=== PATIENT | male | born 1945 | race Caucasian/White ===

== ENCOUNTER 2016-06-01 10:35 | Inpatient (IN) | payer BC, OTHER ==
[~2016-06-01] VITALS: Ht 182.9 cm; Wt 89.4 kg
[2016-06-01] MEDS ORDERED: SODIUM CHLORIDE 0.9% 500ML 500 ML IV STA (11:17)
[2016-06-01] MEDS ORDERED: BROM2.5T3 PO (11:29)
[2016-06-01] MEDS ORDERED: LEVO175T PO (11:29)
[2016-06-01] MEDS ORDERED: CHOL20009 PO (11:29)
[2016-06-01] MEDS ORDERED: OPTIRAY 320 IV PRN (11:30)
[2016-06-01 11:55] LABS: HEMATOCRIT 38.7 % (42-52); MEAN CORPUSCULAR HEMOGLOBIN 28.9 pg (25-34); MEAN CORPUSCULAR HGB CONC 35.7 g/dl (32-36); MEAN PLATELET VOLUME 9.8 fL (7.4-10.4); PLATELET COUNT 184 K/uL (130-400); RED BLOOD COUNT 4.78 M/uL (4.7-6.1); WHITE BLOOD COUNT 11.65 K/uL (4.8-10.8)
[2016-06-01 12:02] LABS: BUN/CREATININE RATIO 11.4 (10-20); CALCIUM 9.1 mg/dl (8.5-10.1); CREATININE 0.79 mg/dl (0.60-1.40); MAGNESIUM 2.1 mg/dl (1.8-2.4)
[2016-06-01 12:08] LABS: ALB/GLOB RATIO 1.3 (0.9-2); CKMB/CK RATIO 0.6 (0-3.0)
--- NOTE | 2016-06-01 12:28 | DIAGNOSTIC IMAGING REPORT ---
CHEST CTA for PULMONARY ARTERIES CT DOSE: 322.67 mGy.cm HISTORY: Chest pain dyspnea TECHNIQUE: Multiaxial CT images of the chest were performed following the intravenous administration of contrast to evaluate the pulmonary arteries. Maximal intensity projection images were also obtained. COMPARISON STUDY: None. FINDINGS: Thoracic aorta is unremarkable. No evidence for aneurysm or dissection. Multiple filling defects involving the right lower lobe pulmonary arterial vasculature. No evidence for major or central/saddle pulmonary embolus. Lungs are considered generally clear. IMPRESSION: Study is positive for several pulmonary emboli involving the right lower lobe pulmonary arterial vasculature. Electronically signed by: Kevin Buchanan M.D. 06/01/2016 12:27 PM Dictated Date/Time: 06/01/2016 12:23 PM
--- NOTE | 2016-06-01 13:13 | History and Physical ---
History & Physical Date & Time of Service: Jun 01, 2016 at 13:06 Chief Complaint: Left Leg Pain-Sent From Ultrasound Primary Care Physician: Isaias Robles M.D. History of Present Illness Source: patient This is a 70 yo M with PMHx pituitary tumor, hyperprolactinoma which he is taking bromocriptine for, s/p thryoidectomy on levothyroxine, and hx of superficial thrombophlebitis who presents to the ED after seeking out medical care for pain in his LLE this morning. Pt reports 1 week ago was kickboxing and noticed he was more short of breath than normal, and that he required taking it easier with his exercising up until 2 days ago. He developed a superficial thrombophlebitis and was treating this with warm compresses until this morning it felt like a deeper pain and was very sore. LLE doppler revealed popliteal DVT and was sent to the ED by ultrasound department. A CTPE shows multiple RLL segmental PE's. Pt wears a fitbit and was alerted that his HR was elevated to 110 at home this morning, here it is =102. He is agreeable to admission and being started on heparin gtt after being spoken to by me. Past Medical/Surgical History Pituitary tumor, Hyperprolactinoma S/p thryroidectomy Family History Pt denies family history of clotting or bleeding disorders. Father when pt was age 3 and mother 40 years ago to unknown causes. Social History Smoking Status: Never Smoker Smokeless Tobacco Use: No Alcohol Use: occasionally Drug Use: none Marital Status: Housing status: lives with family Multi-Drug Resistant Organisms History of MDRO: No Allergies Coded Allergies: Sulfa Antibiotics (Verified Allergy, Unknown, ., 06/01/16) Home Medications Scheduled Bromocriptine Mesylate (Bromocriptine Mesylate), 2.5 MG PO DAILY Cholecalciferol (Vitamin D), 2,000 UNIT PO DAILY Levothyroxine Sodium (Synthroid), 175 MCG PO DAILY Review of Systems Constitutional: + fatigue, No chills, No fever, No sweats Eyes: No eye pain, No redness ENT: No nasal symptoms, No tinnitus, No unusual epistaxis Respiratory: + dyspnea on exertion, No cough, No dyspnea at rest, No wheezing Cardiovascular: + problem reported, No chest pain, No palpitations Musculoskeletal: + calf pain (LLE), No joint pain, No swelling Genitourinary - Male: No hematuria Neurologic: No balance problems, No numbness/tingling Psychiatric: No anxiety, No insomnia Endocrine: + fatigue Hematologic / Lymphatic: No abnormal bleeding/bruising, No clotting problems Integumentary: No itch, No rash Physical Exam Vital Signs Date Time Temp Pulse Resp B/P Pulse Ox O2 Delivery O2 Flow Rate FiO2 06/01/16 11:29 97 Room Air 06/01/16 10:47 37.2 103 20 135/82 95 Room Air General Appearance: WD/WN, no apparent distress, + pertinent finding (appears younger than stated age) Head: normocephalic, atraumatic Eyes: PERRL, EOMI ENT: hearing grossly normal, pharynx normal Neck: supple, no JVD Respiratory/Chest: chest non-tender, lungs clear, normal breath sounds, no respiratory distress, no accessory muscle use Cardiovascular: no JVD, no murmur, normal peripheral pulses, + tachycardia (HR= 102), + pertinent finding (regular rhythm) Abdomen/GI: normal bowel sounds, non tender Back: normal inspection Extremities/Musculoskelatal: no pedal edema, + calf tenderness (LLE DVT and + superficial thrombophlebitis ) Neurologic/Psych: alert, normal mood/affect, oriented x 3 Skin: normal color, warm/dry, + pertinent finding (vericose veins of BLE) Diagnostics Laboratory Results Results Past 24 Hours Test 06/01/16 11:28 06/01/16 11:37 06/01/16 12:50 Range/Units White Blood Count 11.65 4.8-10.8 K/uL Red Blood Count 4.78 4.7-6.1 M/uL Hemoglobin 13.8 14.0-18.0 g/dL Hematocrit 38.7 42-52 % Mean Corpuscular Volume 81.0 80-100 fL Mean Corpuscular Hemoglobin 28.9 25-34 pg Mean Corpuscular Hemoglobin Concent 35.7 32-36 g/dl Platelet Count 184 130-400 K/uL Mean Platelet Volume 9.8 7.4-10.4 fL RDW Standard Deviation 36.2 36.4-46.3 fL RDW Coefficient of Variation 12.3 11.5-14.5 % Sodium Level 141 136-145 mmol/L Potassium Level 4.0 3.5-5.1 mmol/L Chloride Level 105 98-107 mmol/L Carbon Dioxide Level 26 21-32 mmol/L Anion Gap 10.0 3-11 mmol/L Blood Urea Nitrogen 9 7-18 mg/dl Creatinine 0.79 0.60-1.40 mg/dl Est Creatinine Clear Calc Drug Dose 95.5 ml/min Estimated GFR () 105.4 Estimated GFR (Non- 91.0 BUN/Creatinine Ratio 11.4 10-20 Random Glucose 91 70-99 mg/dl Calcium Level 9.1 8.5-10.1 mg/dl Magnesium Level 2.1 1.8-2.4 mg/dl Total Bilirubin 0.8 0.2-1 mg/dl Aspartate Amino Transf (AST/SGOT) 17 15-37 U/L Alanine Aminotransferase (ALT/SGPT) 21 12-78 U/L Alkaline Phosphatase 84 45-117 U/L Total Creatine Kinase 78 39-308 U/L Creatine Kinase MB 0.5 0.5-3.6 ng/ml Creatine Kinase MB Ratio 0.6 0-3.0 Total Protein 7.0 6.4-8.2 gm/dl Albumin 3.9 3.4-5.0 gm/dl Globulin 3.1 2.5-4.0 gm/dl Albumin/Globulin Ratio 1.3 0.9-2 Bedside Troponin I 0.000 0-0.045 ng/ml Diagnostic Radiology Venous Doppler left leg VENOUS DOPP LOWER EXT UNILAT CLINICAL HISTORY: M79.605 Left leg painleft lower ext.[id number] pain. Edema. TECHNIQUE: Venous Doppler COMPARISON STUDY: None FINDINGS: Findings consistent with a combination of acute superficial thrombophlebitis and deep venous thrombosis. Deep venous thrombosis demonstrated within the popliteal vein. Superficial thrombophlebitis within the greater saphenous vein. The saphenous thrombophlebitis extends to several centimeters from the common femoral vein. IMPRESSION: Acute deep venous thrombosis combined with superficial thrombophlebitis. Electronically signed by: Kevin Buchanan M.D. 06/01/2016 10:12 AM Dictated Date/Time: 06/01/2016 10:10 AM The status of this report is Signed. CHEST CTA for PULMONARY ARTERIES CT DOSE: 322.67 mGy.cm HISTORY: Chest pain dyspnea TECHNIQUE: Multiaxial CT images of the chest were performed following the intravenous administration of contrast to evaluate the pulmonary arteries. Maximal intensity projection images were also obtained. COMPARISON STUDY: None. FINDINGS: Thoracic aorta is unremarkable. No evidence for aneurysm or dissection. Multiple filling defects involving the right lower lobe pulmonary arterial vasculature. No evidence for major or central/saddle pulmonary embolus. Lungs are considered generally clear. IMPRESSION: Study is positive for several pulmonary emboli involving the right lower lobe pulmonary arterial vasculature. Electronically signed by: Kevin Buchanan M.D. 06/01/2016 12:27 PM Dictated Date/Time: 06/01/2016 12:23 PM The status of this report is Signed. EKG Vent. rate 97 BPM CA interval 146 ms QRS duration 90 ms QT/QTc 336/426 ms P-R-T axes 61 -44 61 NSR without ischemic or acute changes. Normal EKG Impression Assessment and Plan This is a 70 yo M with PMHx pituitary tumor, hyperprolactinoma which he is taking bromocriptine for, s/p thyroidectomy on levothyroxine, and hx of superficial thrombophlebitis who presents to the ED after seeking out medical care for pain in his LLE this morning, found to have LLE DVT and RLL pulmonary embolism. Pulmonary Embolism, LLE DVT - Admit to tele - Start heparin bolus and gtt, continue - will likely be discharged on xarelto - LLE doppler reviewed showing popliteal and superficial thrombophlebitis - CT PE reviewed showing multiple RLL pe, no saddle pe - Coags and coag deficiency workup in process - No family hx of clotting disorder in the family. - Continue warm compress of LLE for superficial thrombophlebitis - HR elevated, continue to monitor. EKG is NRS without acute ischemic changes or abnormalities. Hyperprolactinoma - Cont bromocriptine 2.5 mg daily S/p Thryoidectomy 25 yrs ago - Cont levothyroxine 175 mcg daily Neutraceuticals - Cont Vit D supplementation DVT ppx: Heparin gtt protocol for PE CODE STATUS: FULL CODE Disposition: From home, return when medically stable, pt does not express concerns or needs for CM planning at this time. Level of Care Telemetry Resuscitation Status FULL RESUSCITATION VTE Prophylaxis VTE Risk Assessment Done? Y/N: Yes Risk Level: Moderate Given or contraindicated: Other Anticoagulation Social Service Consult None Apply
[2016-06-01] MEDS ORDERED: ACETAMINOPHEN 325 MG TAB PO PRN (13:15)
[2016-06-01] MEDS ORDERED: ONDANSETRON INJ 2 MG/ML 2 ML VIAL IV PRN (13:15)
[2016-06-01] MEDS ORDERED: POLYETHYLENE (MIRALAX) 17 GM PACK PO PRN (13:15)
[2016-06-01 13:21] LABS: PROTHROMBIN TIME (PATIENT) 10.6 SECONDS (9.0-12.0)
[2016-06-01] MEDS ORDERED: HEPARIN SOD 5000 UNIT/0.5 ML CARP ONE (13:34)
[2016-06-01] MEDS ORDERED: HEPARIN 25000 UNIT/500 ML D5W ONE (13:34)
[2016-06-01 14:03] LABS: EOSINOPHIL % 1.7 %; LYMPH ABS # 3.15 K/uL (1.2-3.4); MYELOCYTE % 0.9 %; NEUTROPHILS % 46.9 %; SMUDGE CELLS PRESENT; VARIANT LYM ABS # 2.03 K/uL; VARIANT LYMPHOCYTE % 17.4 %
[2016-06-01] MEDS ORDERED: HEPARIN 25,000 UNIT/500ML D5W 500 ML IV PRN (15:45)
[2016-06-01 16:00] VITALS: BP 135/84; PULSE 87; TEMP 36.8; O2SAT 97; Ht 182.9 cm; Wt 89.4 kg
[2016-06-01 17:54] LABS: COMPLETE YES
[2016-06-01] MEDS: RIVAROXABAN TAB 15 MG TAB PO SCH (18:07)
[2016-06-01 19:41] VITALS: BP 121/69; PULSE 89; TEMP 36.9; O2SAT 95
[2016-06-01 23:55] VITALS: BP 126/70; PULSE 89; TEMP 36.7; O2SAT 99
[2016-06-02 04:12] VITALS: BP 139/72; PULSE 88; TEMP 37; O2SAT 97
[2016-06-02] MEDS ORDERED: LEVOTHYROXINE 175 MCG TAB PO SCH (06:30)
[2016-06-02] MEDS: RIVAROXABAN TAB 15 MG TAB PO SCH (06:39)
[2016-06-02 07:39] VITALS: BP 127/76; PULSE 84; TEMP 36.6; O2SAT 98
[2016-06-02] MEDS ORDERED: BROMOCRIPTINE MESYLATE 2.5 MG TAB PO SCH (09:00)
[2016-06-02] MEDS ORDERED: XRL15 PO ×2 (09:46→10:09)
--- NOTE | 2016-06-02 09:58 | Discharge Instructions ---
Discharge Instructions Admission Reason for Admission: Pulmonary Embolism Discharge Discharge Diagnosis / Problem: Pulmonary Embolism, left Leg deep venous thrombosis Discharge Goals Goal(s): Decrease discomfort, Improve function, Learn about illness Activity Recommendations Activity Limitations: resume your previous activity Lifting Limitations: gradually increase as tolerated Exercise/Sports Limitations: gradually increase as tolerated May Resume Sexual Activity: when tolerated Shower/Bathe: no limitations Driving or Machine Use: no limitations . Instructions / Follow-Up Instructions / Follow-Up You were admitted to [facility] with pulmonary embolism and left leg deep venous thrombosis and diagnosed with the same. You were treated with heparin to dissolve the clots. You were started on a medication called xarelto. Continue taking xarelto 15 mg twice daily for 21 days. After 21 days start taking 20 mg once daily until specified by your Primary care physician. You will need a new prescription from your primary care physician at that time. You have been given a activation card for xarelto so that your copay is zero. Imaging studies which were completed include CT angiogram showing multiple right lung pulmonary embolisms (clot in blood vessel of the lung), and left lower extremity ultrasound showing popliteal deep venous thrombosis (clot). Follow up with your PCP as follows: Your appointment with Dr. Robles on 06/03 at 11:00 am Current Hospital Diet Patient's current hospital diet: AHA Diet (Heart Healthy) Discharge Diet Recommended Diet: AHA Diet (Heart Healthy) Procedures Procedures Performed: None Pending Studies Studies pending at discharge: yes List of pending studies: Protein C and Protein S deficency, Factor V leiden, antithrombin III. - Need to be followed up by your PCP Work Instructions Return To Work: 2 days Lifting Limitations: none Medical Emergencies . Who to Call and When: Medical Emergencies: If at any time you feel your situation is an emergency, please call 911 immediately. . Non-Emergent Contact Non-Emergency issues call your: Primary Care Provider You develop a fever, chills, sweats, increased shortness of breath, chest pain, difficulty breathing with exertion, palpitations, high heart rate, or if you have other concerns regarding your health. . Past History Medical & Surgical History: (1) H/O thyroidectomy (2) Hyperprolactinoma (3) Deep venous thrombosis of left popliteal vein (4) Pulmonary embolism . "Provider Documentation" section prepared by Megan Villasenor. VTE Core Measure Inpt VTE Proph given/why not?: Other Anticoagulation
[2016-06-02 10:01] VITALS: BP 127/76; PULSE 84; TEMP 36.6; O2SAT 98
--- NOTE | 2016-06-02 10:07 | Discharge Summary ---
Discharge Summary Admission Date: Jun 01, 2016 at 13:08 Discharge Date: Jun 02, 2016 Discharge Disposition: Home Principal Diagnosis: Pulmonary embolism, left popliteal DVT Problems/Secondary Diagnoses: Hyperprolactinoma, s/p thyroidectomy Procedures: CHEST CTA for PULMONARY ARTERIES CT DOSE: 322.67 mGy.cm HISTORY: Chest pain dyspnea TECHNIQUE: Multiaxial CT images of the chest were performed following the intravenous administration of contrast to evaluate the pulmonary arteries. Maximal intensity projection images were also obtained. COMPARISON STUDY: None. FINDINGS: Thoracic aorta is unremarkable. No evidence for aneurysm or dissection. Multiple filling defects involving the right lower lobe pulmonary arterial vasculature. No evidence for major or central/saddle pulmonary embolus. Lungs are considered generally clear. IMPRESSION: Study is positive for several pulmonary emboli involving the right lower lobe pulmonary arterial vasculature. Electronically signed by: Kevin Buchanan M.D. 06/01/2016 12:27 PM Dictated Date/Time: 06/01/2016 12:23 PM The status of this report is Signed. Venous Doppler left leg VENOUS DOPP LOWER EXT UNILAT CLINICAL HISTORY: M79.605 Left leg painleft lower ext.[id number] pain. Edema. TECHNIQUE: Venous Doppler COMPARISON STUDY: None FINDINGS: Findings consistent with a combination of acute superficial thrombophlebitis and deep venous thrombosis. Deep venous thrombosis demonstrated within the popliteal vein. Superficial thrombophlebitis within the greater saphenous vein. The saphenous thrombophlebitis extends to several centimeters from the common femoral vein. IMPRESSION: Acute deep venous thrombosis combined with superficial thrombophlebitis. Electronically signed by: Kevin Buchanan M.D. 06/01/2016 10:12 AM Dictated Date/Time: 06/01/2016 10:10 AM The status of this report is Signed. Consultations: None Medication Reconciliation New Medications: Rivaroxaban (Xarelto) 15 Mg Tab 15 MG PO BID@0700,1800 for 21 Days, #21 DOSE Continued Medications: Bromocriptine Mesylate (Bromocriptine Mesylate) 2.5 Mg Tab 2.5 MG PO DAILY Cholecalciferol (Vitamin D) 2,000 Unit Tab 2000 UNIT PO DAILY Levothyroxine Sodium (Synthroid) 175 Mcg Tab 175 MCG PO DAILY, TAB Discharge Exam The patient was seen and examined this morning. Pt reports feeling well today. He has no acute complaints. Questions regarding xarelto were discussed with the patient at bedside and were answered. Pt is being discharged to home today. Review of Systems: Constitutional: No fever Eyes: No problem reported ENT: No problem reported Respiratory: No dyspnea at rest, No dyspnea on exertion, No shortness of breath Cardiovascular: No chest pain, No palpitations Abdomen: No diarrhea, No nausea, No pain, No vomiting Musculoskeletal: No swelling Genitourinary - Male: No dysuria Neurologic: No numbness/tingling, No weakness Endocrine: No fatigue Integumentary: No itch, No rash Physical Exam: General Appearance: WD/WN, no apparent distress, + pertinent finding ( appears younger than stated age) Eyes: PERRL, EOMI ENT: hearing grossly normal, pharynx normal Neck: no adenopathy, no JVD Respiratory/Chest: lungs clear, normal breath sounds, no respiratory distress, no accessory muscle use Cardiovascular: regular rate, rhythm, no murmur, normal peripheral pulses Abdomen / GI: normal bowel sounds, non tender, soft Extremities: normal inspection, no pedal edema Neurologic/Psychiatric: alert, normal mood/affect, oriented x 3 Skin: normal color, warm/dry Hospital Course H&P per Megan Villasenor PA-C This is a 70 yo M with PMHx pituitary tumor, hyperprolactinoma which he is taking bromocriptine for, s/p thryoidectomy on levothyroxine, and hx of superficial thrombophlebitis who presents to the ED after seeking out medical care for pain in his LLE this morning. Pt reports 1 week ago was kickboxing and noticed he was more short of breath than normal, and that he required taking it easier with his exercising up until 2 days ago. He developed a superficial thrombophlebitis and was treating this with warm compresses until this morning it felt like a deeper pain and was very sore. LLE doppler revealed popliteal DVT and was sent to the ED by ultrasound department. A CTPE shows multiple RLL segmental PE's. Pt wears a fitbit and was alerted that his HR was elevated to 110 at home this morning, here it is =102. He is agreeable to admission and being started on heparin gtt after being spoken to by me. Hospital course: This is a 70 yo M with PMHx pituitary tumor, hyperprolactinoma which he is taking bromocriptine for, s/p thyroidectomy on levothyroxine, and hx of superficial thrombophlebitis who presents to the ED after seeking out medical care for pain in his LLE this morning, found to have LLE DVT and RLL pulmonary embolism. Pulmonary Embolism, LLE DVT - Start heparin bolus and gtt, continue - started xarelto in the evening of admission at 15 mg BID, discharged on xarelto with activation card provided by nurse navigator - LLE doppler reviewed showing popliteal and superficial thrombophlebitis - CT PE reviewed showing multiple RLL pe, no saddle pe - Coags and coag deficiency workup including protein C, S, Factor V leiden still in process, - will need follow up by PCP - No family hx of clotting disorder in the family. - Continue warm compress of LLE for superficial thrombophlebitis - HR elevated, continue to monitor. EKG is NRS without acute ischemic changes or abnormalities. Hyperprolactinoma - Cont bromocriptine 2.5 mg daily S/p Thryoidectomy 25 yrs ago - Cont levothyroxine 175 mcg daily Neutraceuticals - Cont Vit D supplementation DVT ppx: Heparin gtt protocol for PE CODE STATUS: FULL CODE Disposition: From home, discharge today, pt does not express concerns or needs for CM planning at this time. Total Time Spent: Greater than 30 minutes This includes examination of the patient, discharge planning, medication reconciliation, and communication with other providers. Discharge Instructions Please refer to the electronic Patient Visit Report (Discharge Instructions) for additional information. Follow-Up With PCP, Dr Sanchez on 06/03 at 11:00am
--- NOTE | 2016-06-04 14:28 | EMERGENCY ROOM VISIT NOTE ---
History First contact with patient: 11:03 Chief Complaint: LEG PAIN,LEG INJURY Stated Complaint: PULMONARY EMBOLISM History of Present Illness The patient is a 70 year old male who presents to the Emergency Department by private vehicle directly from the ultrasound suite for evaluation of a DVT to the LEFT lower extremity. The patient reports a history of varicose veins and superficial thrombophlebitis. Approximate one week ago, he noticed pain and irritation to the LEFT lower extremity. He utilize warm compresses as well as NSAIDs for what he felt was thrombophlebitis. He reports that his symptoms actually had worsened and reports increasing tenderness up the leg. He was seen in the outpatient today by his primary care provider's office and directed to the emergency Department for an ultrasound. Ultrasound concerning for DVT as well as superficial phlebitis. The patient reports a long-standing history from what sounds like a treated extensive thrombus phlebitis approximately 20 years ago while in [facility]. He was on what sounds like Lovenox at that time, however this is been discontinued. He has had no other episodes and has not been treated with anticoagulants since. He is uncertain of any family history of bleeding disorders or clotting disorders. He reports being tested at some point or another and at least knows that he does not have factor V Leiden disorder. The patient offers no other complaints at this time. He denies any chest pain, palpitations, short of breath, dizziness, light headedness, hemoptysis, nausea, or vomiting. The patient does report that his heart rate has been elevated from his baseline of approximately 70 bpm. He reports no symptoms of this at this time rating his discomfort a 0/10. Review of Systems A complete 10-point Review of Systems was discussed with the patient, with pertinent positives and negatives listed in the History of Present Illness. All remaining Review of Systems questions can be considered negative unless otherwise specified. Past Medical/Surgical History Medical Problems: (1) Deep venous thrombosis of left popliteal vein (2) Hyperprolactinoma (3) Pulmonary embolism Surgical Problems: (1) H/O thyroidectomy Social History Smoking Status: Unknown if Ever Smoked Smokeless Tobacco Use: No Drug Use: none Marital Status: Housing Status: lives with family Occupation Status: employed Current/Historical Medications Scheduled Bromocriptine Mesylate (Bromocriptine Mesylate), 2.5 MG PO DAILY Cholecalciferol (Vitamin D), 2,000 UNIT PO DAILY Levothyroxine Sodium (Synthroid), 175 MCG PO DAILY Rivaroxaban (Xarelto), 15 MG PO BID@0700,1800 Allergies Coded Allergies: Sulfa Antibiotics (Verified Allergy, Unknown, ., 06/01/16) Physical Exam Vital Signs Date Time Temp Pulse Resp B/P Pulse Ox O2 Delivery O2 Flow Rate FiO2 06/01/16 12:49 96 18 150/92 99 Room Air 06/01/16 11:29 97 Room Air 06/01/16 10:47 37.2 103 20 135/82 95 Room Air Pain Rating (0-10): 0 Physical Exam VITAL SIGNS - Vital signs and nursing notes were reviewed. GENERAL - 70-year-old male appearing his stated age who is in no acute distress. Communicates well with provider and answers questions appropriately. LUNGS - Chest wall symmetric without accessory muscle use, intercostals retractions, or central cyanosis. Normal vesicular breath sounds CTA B/L. No wheezes, rales, or rhonchi appreciated. CARDIAC - RRR with S1/S2. No murmur, rubs, or gallops appreciated. No reproducible tenderness to palpation appreciated over the anterior chest wall. ABDOMEN - Abdominal contour flat and without pulsations or visible masses. BS normoactive all four quadrants. No tenderness, palpable masses, hepatosplenomegaly, or ascites noted. EXTREMITIES - No clubbing or peripheral cyanosis. Mild edema and erythema noted to the medial surface of the distal LEFT thigh. Mildly tender to palpation. No palpable cords. No lethargic streaking. NEUROLOGIC - Cranial nerves II through XII grossly intact. Sensory intact to light touch throughout. PSYCH - A&Ox3 and cooperates fully with examiner. Pt is very pleasant and interacts well with examiner. Medical Decision & Procedures ER Provider Diagnostic Interpretation: Radiological imaging and reports were reviewed by myself. Radiologist's Interpretation as follows: Venous Doppler left leg VENOUS DOPP LOWER EXT UNILAT CLINICAL HISTORY: M79.605 Left leg painleft lower ext.[id number] pain. Edema. TECHNIQUE: Venous Doppler COMPARISON STUDY: None FINDINGS: Findings consistent with a combination of acute superficial thrombophlebitis and deep venous thrombosis. Deep venous thrombosis demonstrated within the popliteal vein. Superficial thrombophlebitis within the greater saphenous vein. The saphenous thrombophlebitis extends to several centimeters from the common femoral vein. IMPRESSION: Acute deep venous thrombosis combined with superficial thrombophlebitis. CHEST CTA for PULMONARY ARTERIES CT DOSE: 322.67 mGy.cm HISTORY: Chest pain dyspnea TECHNIQUE: Multiaxial CT images of the chest were performed following the intravenous administration of contrast to evaluate the pulmonary arteries. Maximal intensity projection images were also obtained. COMPARISON STUDY: None. FINDINGS: Thoracic aorta is unremarkable. No evidence for aneurysm or dissection. Multiple filling defects involving the right lower lobe pulmonary arterial vasculature. No evidence for major or central/saddle pulmonary embolus. Lungs are considered generally clear. IMPRESSION: Study is positive for several pulmonary emboli involving the right lower lobe pulmonary arterial vasculature. Laboratory Results 06/01/16 11:28 Red Blood Count 4.78, Mean Corpuscular Volume 81.0, Mean Corpuscular Hemoglobin 28.9, Mean Corpuscular Hemoglobin Concent 35.7, Mean Platelet Volume 9.8 06/01/16 11:28 Test 06/01/16 11:28 06/01/16 11:37 White Blood Count 11.65 K/uL (4.8-10.8) Red Blood Count 4.78 M/uL (4.7-6.1) Hemoglobin 13.8 g/dL (14.0-18.0) Hematocrit 38.7 % (42-52) Mean Corpuscular Volume 81.0 fL (80-100) Mean Corpuscular Hemoglobin 28.9 pg (25-34) Mean Corpuscular Hemoglobin Concent 35.7 g/dl (32-36) Platelet Count 184 K/uL (130-400) Mean Platelet Volume 9.8 fL (7.4-10.4) RDW Standard Deviation 36.2 fL (36.4-46.3) RDW Coefficient of Variation 12.3 % (11.5-14.5) Neutrophils % (Manual) 46.9 % Lymphocytes % (Manual) 27.0 % Variant Lymphocytes % (manual) 17.4 % Monocytes % (Manual) 6.1 % Eosinophils % (Manual) 1.7 % Myelocytes % 0.9 % Neutrophils # (Manual) 5.46 K/uL (1.4-6.5) Total Absolute Neutrophils 5.46 K/uL (1.4-6.5) Lymphocytes # (Manual) 3.15 K/uL (1.2-3.4) Absolute Variant Lymphocytes 2.03 K/uL Total Absolute Lymphocytes 5.17 K/uL (1.2-3.4) Monocytes # (Manual) 0.71 K/uL (0.11-0.59) Eosinophils # (Manual) 0.20 K/uL (0-0.5) Myelocytes # 0.10 K/uL (0-0) Smudge Cells PRESENT Blood Smear Review Prothrombin Time 10.6 SECONDS (9.0-12.0) Prothromb Time International Ratio 1.0 (0.9-1.1) Activated Partial Thromboplast Time 27.0 SECONDS (21.0-31.0) Partial Thromboplastin Ratio 1.0 Anion Gap 10.0 mmol/L (3-11) Est Creatinine Clear Calc Drug Dose 95.5 ml/min Estimated GFR () 105.4 Estimated GFR (Non- 91.0 BUN/Creatinine Ratio 11.4 (10-20) Calcium Level 9.1 mg/dl (8.5-10.1) Magnesium Level 2.1 mg/dl (1.8-2.4) Total Bilirubin 0.8 mg/dl (0.2-1) Aspartate Amino Transf (AST/SGOT) 17 U/L (15-37) Alanine Aminotransferase (ALT/SGPT) 21 U/L (12-78) Alkaline Phosphatase 84 U/L (45-117) Total Creatine Kinase 78 U/L (39-308) Creatine Kinase MB 0.5 ng/ml (0.5-3.6) Creatine Kinase MB Ratio 0.6 (0-3.0) Total Protein 7.0 gm/dl (6.4-8.2) Albumin 3.9 gm/dl (3.4-5.0) Globulin 3.1 gm/dl (2.5-4.0) Albumin/Globulin Ratio 1.3 (0.9-2) Bedside Troponin I 0.000 ng/ml (0-0.045) Medications Administered Medications (Trade) Dose Ordered Sig/Vinnie Route Start Time Stop Time Status Last Admin Dose Admin Sodium Chloride (Nss 500ml) 500 ml @ 999 mls/hr Q31M STAT IV 06/01/16 11:17 06/01/16 11:47 DC 06/01/16 11:17 999 MLS/HR Procedure Patient was placed on the classroom monitor and monitored throughout the entire extent of their stay. In addition, the patient's pulse oximetry was monitored throughout the entire stay. Any abnormalities or aberrancies were addressed appropriately. ECG Indication: tachycardia Rate (beats per minute): 97 Rhythm: normal sinus Findings: no acute ischemic change, left axis deviation, no ectopy Comparison ECG Date: no prior available ED Course Patient was seen and evaluated by myself. I did review the patient's outpatient ultrasound. I had a lengthy discussion with the patient regarding his vital signs, symptoms, and concerned with DVT. Labs were drawn, saline lock in place. CTA of the chest was obtained. EKG was otherwise unremarkable. Cardiac enzymes are negative. There is a mild leukocytosis. There is no significant electrolyte abnormality. CTA concerning for multiple pulmonary emboli in the RIGHT lower lobe. This information was relayed to the patient acknowledges understanding. I did have a discussion with the patient, he was initially hesitant to be admitted for the symptoms. I did discuss the case with him on many physician group who agrees to admit the patient for further evaluation and management. Hypercoagulability panel was ordered. Heparin drip and bolus was ordered. Patient was admitted in stable condition. Medical Decision Given the patient's presentation and stated complaints, I did elect to perform the above-mentioned workup. The patient presents today after having an outpatient ultrasound performed which was positive for DVT. On the patient's initial assessment, he is tachycardic and his oxygen saturation is in the low 90s. The patient denies being short of breath. Regardless, the patient's symptoms are of concern. An EKG demonstrates a left axis deviation, but no other significant findings. A CTA was performed which demonstrated multiple RIGHT lower lobe pulmonary emboli. Patient was admitted for further evaluation and management. Patient admitted in fair condition. In the evaluation and treatment of this patient, the following differential diagnoses were considered: ND, ASC, Dysrhythmia, Angina, Mediastinitis, GERD, Esophagitis, PE, Pneumonia, Bronchitis, Costochondritis, Rib Fracture, Zoster. Impression Primary Impression: Pulmonary embolism Critical Care I have personally spent greater than 30 minutes of critical care time in the direct management of this patient. This includes bedside care, interpretation of diagnostic studies, and testing, discussion with consultants, patient, and family members, and other required patient management activities. This 30 minutes is in excess of all separately billable procedures. Departure Information Dispostion Admitted as an inpatient Condition FAIR Prescriptions Rivaroxaban (Xarelto) 15 Mg Tab 15 MG PO BID@0700,1800 for 21 Days, #21 DOSE Prov: Kimber Villasenor PA-C 06/02/16 Referrals ProIsaias M.D. (PCP) Forms HOME CARE DOCUMENTATION FORM, IMPORTANT VISIT INFORMATION Patient Instructions My [facility] [place] [employer] Work Instructions Return To Work: 2 days Lifting Limitations: none Problem Qualifiers Primary Impression: Pulmonary embolism Pulmonary embolism type: other Chronicity: acute Acute cor pulmonale presence: without acute cor pulmonale Qualified Codes: I26.99 - Other pulmonary embolism without acute cor pulmonale
[2016-06-06 18:33] LABS: ANTITHROMBINIII ACTIVITY** 106 % activity (80-120); B2 GLYCOPROTEIN IGA <9 SAU (<=20); B2 GLYCOPROTEIN IGG <9 SGU (<=20); B2 GLYCOPROTEIN IGM <9 SMU (<=20); LUPUS ANTICOAGULANT** TC36573X Negative (Negative); PROTEIN C ACTIVITY** TC 1777X 133 % (70-180); PROTEIN S ACT(FUNCT)**1779X 104 % (70-150)
== END 2016-06-02 10:40 | disposition home or self-care (01) | DRG 299 ==
LOC: ENRESERVTM → ENRESERVDT → C.EDB 10:37 → C.MED 13:08 → CMPBEDREQ 14:54
PROVIDERS: ADMIT Hospitalist; ATTEND Hospitalist
DX: I82.432 Acute embolism and thrombosis of left popliteal vein (principal); I26.99 Other pulmonary embolism without acute cor pulmonale; Z86.39 Personal history of other endocrine, nutritional and metabolic disease; Z90.89 Acquired absence of other organs; Z79.899 Other long term (current) drug therapy

== ENCOUNTER → 2016-06-01 | Outpatient (CLI) | payer BC ==
[~2016-06-01] MED LIST: BROM2.5T3 PO; CHOL20009 PO; LEVO175T PO; XRL15 PO
--- NOTE | 2016-06-01 10:13 | DIAGNOSTIC IMAGING REPORT ---
Venous Doppler left leg VENOUS DOPP LOWER EXT UNILAT CLINICAL HISTORY: M79.605 Left leg painleft lower ext.[id number] pain. Edema. TECHNIQUE: Venous Doppler COMPARISON STUDY: None FINDINGS: Findings consistent with a combination of acute superficial thrombophlebitis and deep venous thrombosis. Deep venous thrombosis demonstrated within the popliteal vein. Superficial thrombophlebitis within the greater saphenous vein. The saphenous thrombophlebitis extends to several centimeters from the common femoral vein. IMPRESSION: Acute deep venous thrombosis combined with superficial thrombophlebitis. Electronically signed by: Kevin Buchanan M.D. 06/01/2016 10:12 AM Dictated Date/Time: 06/01/2016 10:10 AM
== END | disposition home or self-care (01) ==
LOC: C.ULTR 09:32
PROVIDERS: ATTEND Internal Medicine
DX: I82.432 Acute embolism and thrombosis of left popliteal vein (principal); I80.02 Phlebitis and thrombophlebitis of superficial vessels of left lower extremity

== ENCOUNTER → 2016-07-06 | Outpatient (CLI) | payer BC ==
[2016-07-06 12:10] LABS: HEMATOCRIT 40.4 % (42-52); MEAN CELL VOLUME 83.6 fL (80-100); MEAN CORPUSCULAR HEMOGLOBIN 28.8 pg (25-34); MEAN CORPUSCULAR HGB CONC 34.4 g/dl (32-36); MEAN PLATELET VOLUME 9.6 fL (7.4-10.4); PLATELET COUNT 231 K/uL (130-400); RED BLOOD COUNT 4.83 M/uL (4.7-6.1); WHITE BLOOD COUNT 10.65 K/uL (4.8-10.8)
[2016-07-06 13:07] LABS: BLOOD UREA NITROGEN 11 mg/dl (7-18); BUN/CREATININE RATIO 13.4 (10-20); CALCIUM 9.3 mg/dl (8.5-10.1); CARBON DIOXIDE 27 mmol/L (21-32); CHLORIDE 106 mmol/L (98-107); CREATININE 0.83 mg/dl (0.60-1.40); GLUCOSE 112 mg/dl (70-99); POTASSIUM 4.1 mmol/L (3.5-5.1); SODIUM 142 mmol/L (136-145)
[2016-07-06 13:12] LABS: FERRITIN 157.3 ng/ml (8.0-388.0)
[2016-07-06 13:30] LABS: BASO % 0.2 %; BASO ABS # 0.02 K/uL (0-0.2); COMPLETE YES; EOS % 0.8 %; IG% 0.2 %; LYMPH % 58.2 %; MONO % 3.6 %; SMUDGE CELLS PRESENT
--- NOTE | 2016-07-13 10:07 | CODING QUERY MEDICAL NECESSITY ---
SUPPORTING DIAGNOSIS NEEDED A supporting diagnosis is required for the test/procedure performed on this patient in order for us to be reimbursed by the patient's insurance. Please provide a supporting diagnosis for the following test/procedure listed below next to the test name along with your signature. *If there is no additional diagnosis for this patient that would support the following test/procedure please document that below next to the test/procedure. Test(s)/Procedure(s) that require a supporting diagnosis: DOS 07/06 * PSA DIAGNOSIS: Provider Signature: Date: Thank you Sharonda Krishna Health Information Management Once completed, please kindly fax back to [phone] For questions please call [phone]
== END | disposition home or self-care (01) ==
LOC: C.LAB1850 10:57
PROVIDERS: ATTEND Internal Medicine
DX: C73 Malignant neoplasm of thyroid gland (principal); D35.2 Benign neoplasm of pituitary gland; I26.99 Other pulmonary embolism without acute cor pulmonale; R97.20 Elevated prostate specific antigen [PSA]

== ENCOUNTER → 2016-12-09 | Outpatient (CLI) | payer BC ==
[2016-12-09 12:34] LABS: HEMATOCRIT 40.4 % (42-52); MEAN CELL VOLUME 84.2 fL (80-100); MEAN CORPUSCULAR HGB CONC 34.4 g/dl (32-36); MEAN PLATELET VOLUME 9.8 fL (7.4-10.4); PLATELET COUNT 218 K/uL (130-400); WHITE BLOOD COUNT 11.37 K/uL (4.8-10.8)
[2016-12-09 12:42] LABS: ALT/SGPT 25 U/L (12-78); AST/SGOT 17 U/L (15-37); BLOOD UREA NITROGEN 12 mg/dl (7-18); BUN/CREATININE RATIO 15.1 (10-20); CALCIUM 9.2 mg/dl (8.5-10.1); CARBON DIOXIDE 29 mmol/L (21-32); CHLORIDE 107 mmol/L (98-107); CHOLESTEROL 181 mg/dl (0-200); CREATININE 0.81 mg/dl (0.60-1.40); GLUCOSE 91 mg/dl (70-99); POTASSIUM 3.8 mmol/L (3.5-5.1); SODIUM 141 mmol/L (136-145)
[2016-12-09 12:49] LABS: CHOLESTEROL/HDL RATIO 3.8; HDL CHOLESTEROL 48 mg/dl; LDL CHOLESTEROL CALCULATED 103 mg/dl; TRIGLYCERIDES 148 mg/dl (0-150); VERY LOW DENSITY LIPOPROT CALC 30 mg/dl
[2016-12-09 14:34] LABS: BASO % 0.2 %; BASO ABS # 0.02 K/uL (0-0.2); COMPLETE YES; EOS % 1.6 %; IG% 0.3 %; LYMPH % 64.5 %; LYMPH ABS # 7.33 K/uL (1.2-3.4); MONO % 4.7 %; NEUT % 28.7 %; SMUDGE CELLS PRESENT
== END | disposition home or self-care (01) ==
LOC: C.LAB1850 09:44
PROVIDERS: ATTEND Internal Medicine
DX: C73 Malignant neoplasm of thyroid gland (principal); D35.2 Benign neoplasm of pituitary gland; D72.829 Elevated white blood cell count, unspecified; I82.409 Acute embolism and thrombosis of unspecified deep veins of unspecified lower extremity; R97.20 Elevated prostate specific antigen [PSA]; E78.5 Hyperlipidemia, unspecified

== ENCOUNTER → 2017-01-13 | Outpatient (CLI) | payer BC ==
[2017-01-13 17:00] LABS: HEMATOCRIT 40.1 % (42-52); MEAN CELL VOLUME 84.4 fL (80-100); MEAN CORPUSCULAR HEMOGLOBIN 28.6 pg (25-34); MEAN CORPUSCULAR HGB CONC 33.9 g/dl (32-36); PLATELET COUNT 229 K/uL (130-400); RED BLOOD COUNT 4.75 M/uL (4.7-6.1); WHITE BLOOD COUNT 10.26 K/uL (4.8-10.8)
[2017-01-13 19:42] LABS: COMPLETE YES; ECHINOCYTES 1+; EOSINOPHIL % 2.6 %; LYMPH ABS # 1.95 K/uL (1.2-3.4); MYELOCYTE % 0.9 %; NEUTROPHILS % 29.3 %; VARIANT LYM ABS # 3.89 K/uL; VARIANT LYMPHOCYTE % 37.9 %
== END | disposition home or self-care (01) ==
LOC: C.LAB1850 14:04
PROVIDERS: ATTEND Internal Medicine
DX: R97.20 Elevated prostate specific antigen [PSA] (principal); D72.829 Elevated white blood cell count, unspecified

== ENCOUNTER → 2017-05-06 | Outpatient (CLI) | payer OTHER ==
[2017-05-06 13:22] LABS: HEMATOCRIT 40.8 % (42-52); MEAN CELL VOLUME 85.5 fL (80-100); MEAN CORPUSCULAR HEMOGLOBIN 29.4 pg (25-34); MEAN CORPUSCULAR HGB CONC 34.3 g/dl (32-36); MEAN PLATELET VOLUME 9.7 fL (7.4-10.4); PLATELET COUNT 227 K/uL (130-400); RED CELL DISTRIBUTION WIDTH CV 12.9 % (11.5-14.5); RED CELL DISTRIBUTION WIDTH SD 40.3 fL (36.4-46.3); WHITE BLOOD COUNT 11.71 K/uL (4.8-10.8)
== END | disposition home or self-care (01) ==
LOC: C.LAB1850 11:45
PROVIDERS: ATTEND Internal Medicine
DX: D72.829 Elevated white blood cell count, unspecified (principal); R97.20 Elevated prostate specific antigen [PSA]

== ENCOUNTER → 2017-06-06 | Outpatient (CLI) | payer OTHER ==
[2017-06-06 12:22] LABS: BLOOD UREA NITROGEN 8 mg/dl (7-18); CREATININE 0.88 mg/dl (0.60-1.40)
== END | disposition home or self-care (01) ==
LOC: C.LAB1850 10:06
PROVIDERS: ATTEND Urology
DX: C73 Malignant neoplasm of thyroid gland (principal); D35.2 Benign neoplasm of pituitary gland; E55.9 Vitamin D deficiency, unspecified; R97.20 Elevated prostate specific antigen [PSA]